=== PATIENT | male | born 1940 | race Caucasian/White ===

== ENCOUNTER 2025-01-06 09:51 | Outpatient (CLI) | payer OTHER ==
[2025-01-06] MEDS ORDERED: Iopamidol 370 76% 100 ML VIAL ONE (09:57)
[2025-01-06 11:02] LABS: Estimated GFR - POC 54.0
== END 2025-01-06 09:52 | disposition home or self-care (01) ==
LOC: CSHCT 09:51
PROVIDERS: ATTEND Thoracic Surgery (Cardiothoracic Vascular Surgery)
DX: I71.43 Infrarenal abdominal aortic aneurysm, without rupture (principal); I70.0 Atherosclerosis of aorta
CPT/HCPCS: 36415; 74174; 82565